=== PATIENT | female | born 1990 | race Caucasian/White ===

== ENCOUNTER 2016-12-03 01:50 | Emergency (ER) | payer BC ==
[2016-12-03] MEDS ORDERED: Ondansetron 4 MG Tab.DIS PO ONE (01:58)
[2016-12-03] MEDS ORDERED: Ketorolac 30 MG/ML SDV IVPUSH ONE (01:58)
[2016-12-03] MEDS ORDERED: Sodium Chloride 0.9% 1,000 ML IV SCH (02:00)
[2016-12-03] MEDS ORDERED: Ondansetron 4 MG/2 ML SDV IVPUSH ONE (02:03)
--- NOTE | 2016-12-03 02:20 | EDM.PDOC ---
ED HPI GENERAL MEDICAL PROBLEM - General Chief Complaint: Abdominal Pain Stated Complaint: ABDOMINAL PAIN Time Seen by Provider: 12/03/16 02:13 - History of Present Illness INITIAL COMMENTS - FREE TEXT/NARRATIVE: HISTORY AND PHYSICAL: History of present illness: Patient is a 26-year-old white female history of known cholelithiasis who presents with concern right upper quadrant abdominal pain nausea and vomiting after having been setswana fries. She denies fever chills states she's been relatively without attacks x10-12 months status post Review of systems: As per history of present illness and below otherwise all systems reviewed and negative. Past medical history: As per history of present illness and as reviewed below otherwise noncontributory. Surgical history: As per history of present illness and as reviewed below otherwise noncontributory. Social history: No reported history of drug or alcohol abuse. Family history: As per history of present illness and as reviewed below otherwise noncontributory. Physical exam: HEENT: Atraumatic, normocephalic, pupils reactive, negative for conjunctival pallor or scleral icterus, mucous membranes moist, throat clear, neck supple, nontender, trachea midline. Lungs: Clear to auscultation, breath sounds equal bilaterally, chest nontender. Heart: S1S2, regular, negative for clicks, rubs, or JVD. Abdomen: Soft, nondistended, mild tenderness in the right upper quadrant with deep palpation no rebound no guarding. Negative for masses or hepatosplenomegaly. Negative for costovertebral tenderness. Pelvis: Stable nontender. Genitourinary: Deferred. Rectal: Deferred. Extremities: Atraumatic, negative for cords or calf pain. Neurovascular unremarkable. Neuro: Awake, alert, oriented. Cranial nerves II through XII unremarkable. Cerebellum unremarkable. Motor and sensory unremarkable throughout. Exam nonfocal. Diagnostics: CBC CMP lipase right upper quadrant ultrasound Therapeutics: Normal saline 1 L bolus Toradol 30 mg IV Zofran 4 mg IV Impression: #1 cholelithiasis with biliary colic Definitive disposition and diagnosis as appropriate pending reevaluation and review of above. Treatments RENAL MEDICINE PHYSICIAN: Reports: Other medication(s) Other Treatments RENAL MEDICINE PHYSICIAN: tab. oxycodone @ 23:00hrs abdominal pain Pain Score (Numeric/FACES): 7 - Related Data Allergies Allergy/AdvReac Type Severity Reaction Status Date / Time Penicillins Allergy Hives Verified 12/03/16 01:54 Sulfa (Sulfonamide Allergy Hives Verified 12/03/16 01:54 Antibiotics) Home Meds: Home Meds buPROPion HCl [Wellbutrin Xl] 1 tab PO DAILY 09/26/16 [History] Oxycodone-Apap 12/03/16 [History] Past Medical History HEENT History: Reports: None Cardiovascular History: Reports: None Respiratory History: Reports: None Gastrointestinal History: Reports: Other (see below) Other Gastrointestinal History: gallstones Genitourinary History: Reports: None 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: Musculoskeletal History: Reports: None Neurological History: Reports: None Psychiatric History: Reports: Anxiety, Depression Endocrine/Metabolic History: Reports: None Hematologic History: Reports: None Oncologic (Cancer) History: Reports: None Dermatologic History: Reports: None - Infectious Disease History Infectious Disease History: Reports: None - Past Surgical History Head Surgeries/Procedures: Reports: None HEENT Surgical History: Reports: Oral surgery, Tonsillectomy Female Surgical History: Reports: section Musculoskeletal Surgical History: Reports: Other (see below) Other Musculoskeletal Surgeries/Procedures:: bilateral bunionectomy Social & Family History - Family History Family Medical History: Noncontributory - Tobacco Use Smoking Status *Q: Never Smoker Second Hand Smoke Exposure: No - Caffeine Use Caffeine Use: Reports: Soda - Recreational Drug Use Recreational Drug Use: No ED ROS GENERAL - Review of Systems Review Of Systems: ROS reveals no pertinent complaints other than HPI. ED EXAM, GENERAL - Physical Exam Exam: See Below (See dictation) Course - Vital Signs Last Recorded V/S: Last Vital Signs Temp 36.1 C 12/03/16 01:55 Pulse 80 12/03/16 01:55 Resp 16 12/03/16 01:55 BP 131/89 12/03/16 01:55 Pulse Ox 98 12/03/16 01:55 - Orders/Labs/Meds Orders: Active Orders 24 hr Category Date Time Status Gallbladder [Abdomen Ltd] [US] Stat Exams 12/03/16 01:58 Ordered CBC WITH AUTO DIFF [HEME] Stat Lab 12/03/16 01:58 Ordered COMPREHENSIVE METABOLIC PN,CMP [CHEM] Stat Lab 12/03/16 01:58 Ordered HCG QUALITATIVE,SERUM [CHEM] Stat Lab 12/03/16 01:58 Ordered Sodium Chloride 0.9% [Normal Saline] 1,000 ml Med 12/03/16 02:00 Active IV ASDIRECTED Medication Orders Sodium Chloride (Normal Saline) 1,000 mls @ 999 mls/hr IV ASDIRECTED JOSUE Last Admin: 12/03/16 02:15 Dose: 999 mls/hr Meds: Medications Generic Name Dose Route Start Last Admin Trade Name Freq PRN Reason Stop Dose Admin Sodium Chloride 1,000 mls @ 999 mls/hr 12/03/16 02:00 12/03/16 02:15 Normal Saline IV 999 mls/hr ASDIRECTED JOSUE Administration Discontinued Medications Generic Name Dose Route Start Last Admin Trade Name Freq PRN Reason Stop Dose Admin Ketorolac Tromethamine 30 mg 12/03/16 01:58 12/03/16 02:15 Toradol IVPUSH 12/03/16 01:59 30 mg ONETIME ONE Administration Ondansetron HCl 4 mg 12/03/16 01:58 12/03/16 02:03 Zofran Odt PO 12/03/16 01:59 Not Given ONETIME ONE Ondansetron HCl 4 mg 12/03/16 02:03 12/03/16 02:15 Zofran IVPUSH 12/03/16 02:04 4 mg ONETIME ONE Administration Departure - Departure Time of Disposition: 02:19 Disposition: Home, Self-Care 01 Condition: good Clinical Impression: Cholelithiasis, Biliary colic Forms: ED Department Discharge Additional Instructions: The following information is given to patients seen in the emergency department who are being discharged to home. This information is to outline your options for follow-up care. We provide all patients seen in our emergency department with a follow-up referral. The need for follow-up, as well as the timing and circumstances, are variable depending upon the specifics of your emergency department visit. If you don't have a primary care physician on staff, we will provide you with a referral. We always advise you to contact your personal physician following an emergency department visit to inform them of the circumstance of the visit and for follow-up with them and/or the need for any referrals to a consulting specialist. The emergency department will also refer you to a specialist when appropriate. This referral assures that you have the opportunity for followup care with a specialist. All of these measure are taken in an effort to provide you with optimal care, which includes your followup. Under all circumstances we always encourage you to contact your private physician who remains a resource for coordinating your care. When calling for followup care, please make the office aware that this follow-up is from your recent emergency room visit. If for any reason you are refused follow-up, please contact the [facility] emergency department at and asked to speak to the emergency department charge nurse. [facility] - General Surgery Professional Building [address] [place] [address], [address] [place] [address] Dietary changes as discussed Motrin or Tylenol as directed follow Gen. surgery above call schedule routine appointment return as needed as discussed - My Orders Last 24 Hours: My Active Orders 12/03/16 01:58 Gallbladder [Abdomen Ltd] [US] Stat CBC WITH AUTO DIFF [HEME] Stat COMPREHENSIVE METABOLIC PN,CMP [CHEM] Stat HCG QUALITATIVE,SERUM [CHEM] Stat 12/03/16 02:00 Sodium Chloride 0.9% [Normal Saline] 1,000 ml IV ASDIRECTED - Assessment/Plan Last 24 Hours: My Active Orders 12/03/16 01:58 Gallbladder [Abdomen Ltd] [US] Stat CBC WITH AUTO DIFF [HEME] Stat COMPREHENSIVE METABOLIC PN,CMP [CHEM] Stat HCG QUALITATIVE,SERUM [CHEM] Stat 12/03/16 02:00 Sodium Chloride 0.9% [Normal Saline] 1,000 ml IV ASDIRECTED
[2016-12-03 03:06] LABS: CHLORIDE,CL 109 mmol/L (98-110); SODIUM,NA 141 mmol/L (136-146)
[2016-12-03 05:09] VITALS: BP 127/81
--- NOTE | 2016-12-04 10:41 | US ---
EXAM DATE: 12/03/16 PATIENT'S AGE: 26 Patient: BEBE BOYER Facility: [place], [place] Site . Site : 1990 Study: US Abdomen [id number]/23/2017 3:46:03 AM Ordering Physician: Doctor Rodriguez Final Report: INDICATION: Right upper quadrant pain TECHNIQUE: Ultrasound abdomen limited. Sonographic images of the right upper quadrant were obtained using davis-scale and color Doppler images. COMPARISON: 04/28/2016 FINDINGS: Liver: Mildly prominent, measuring 18.4 centimeters. Unremarkable hepatic echotexture.. No masses. No intrahepatic biliary dilatation. Gallbladder: Cholelithiasis again seen. No significant gallbladder wall thickening. No pericholecystic fluid. Common bile duct: 4 mm. Pancreas: Not well evaluated due to obscuring bowel gas. Right kidney: 10.4 x 4.2 x 6.0 cm. Normal echotexture and cortex. No masses, stones, or hydronephrosis. IMPRESSION: Cholelithiasis. Limited evaluation of the pancreas. Dictated by Josh Nation MD @ 12/03/2016 4:35:40 AM Dictated by: Josh Nation MD @ 12/03/2016 04:35:49 (Electronic Signature) Report Signed by Proxy and Original Signed Document filed in the Medical Record. MTDD
== END 2016-12-03 05:08 | disposition home or self-care (01) ==
LOC: MW.ED 01:50
DX: K80.70 Calculus of gallbladder and bile duct without cholecystitis without obstruction (principal); Z79.891 Long term (current) use of opiate analgesic; Z79.899 Other long term (current) drug therapy; F41.9 Anxiety disorder, unspecified; F32.9 Major depressive disorder, single episode, unspecified
CPT/HCPCS: 36415; 76705; 80053; 82150; 83690; 84703; 85025; 96361; 96374; 96375; 99284; J1885; J2405; J7040

== ENCOUNTER 2017-10-16 15:11 | Emergency (ER) | payer OTHER ==
--- NOTE | 2017-10-16 15:55 | EDM.PDOC ---
ED HPI GENERAL MEDICAL PROBLEM - General Chief Complaint: Upper Extremity Injury/Pain Stated Complaint: ANXIETY,TIGHTNESS IN LEFT SHOULDER Time Seen by Provider: 10/16/17 15:27 Source of Information: Reports: Patient History Limitations: Reports: No Limitations - History of Present Illness INITIAL COMMENTS - FREE TEXT/NARRATIVE: History of present illness: []Patient presents with two-week history of pain in her upper abdomen that change today and became pain her upper chest and shoulder. Patient is worried she was having a heart issue because of all the stress she is having from moving. Denies doing any heavy lifting or having any injuries while packing and moving. She denies any shortness of breath, fevers, chills or cough. Review of systems: As per history of present illness and below otherwise all systems reviewed and negative. Past medical history: As per history of present illness and as reviewed below otherwise noncontributory. Surgical history: As per history of present illness and as reviewed below otherwise noncontributory. Social history: No reported history of drug or alcohol abuse. Family history: As per history of present illness and as reviewed below otherwise noncontributory. Physical exam: General: Well developed, well nourished in NAD HEENT: Atraumatic, normocephalic, pupils reactive, negative for conjunctival pallor or scleral icterus, mucous membranes moist, throat clear, neck supple, nontender, trachea midline. Lungs: Clear to auscultation, breath sounds equal bilaterally, chest nontender. Area of her tenderness is under her distal left clavicle that is not reproducible with palpation or with arm movement. Heart: S1S2, regular, negative for clicks, rubs, or JVD. Abdomen: Soft, nondistended, nontender. Negative for masses or hepatosplenomegaly. Negative for costovertebral tenderness. Pelvis: Stable nontender. Genitourinary: Deferred. Rectal: Deferred. Extremities: Atraumatic, negative for cords or calf pain. Neurovascular unremarkable. Neuro: Awake, alert, oriented. Cranial nerves II through XII unremarkable. Cerebellum unremarkable. Motor and sensory unremarkable throughout. Exam nonfocal. Diagnostics: []EKG normal sinus rhythm without ischemic changes, CBC chemistry and chest x- ray are also all normal Therapeutics: [] Impression: []Stress gastritis Plan: []Take Pepcid 2 times a day for 2 weeks follow-up with primary care Definitive disposition and diagnosis as appropriate pending reevaluation and review of above. Left Shoulder Pain Score (Numeric/FACES): 3 - Related Data Allergies Allergy/AdvReac Type Severity Reaction Status Date / Time Penicillins Allergy Hives Verified 10/16/17 15:28 Sulfa (Sulfonamide Allergy Hives Verified 10/16/17 15:28 Antibiotics) Home Meds: Home Meds . 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: Musculoskeletal History: Reports: None Neurological History: Reports: None Psychiatric History: Reports: Anxiety, Depression Endocrine/Metabolic History: Reports: None Hematologic History: Reports: None Oncologic (Cancer) History: Reports: None Dermatologic History: Reports: None - Infectious Disease History Infectious Disease History: Reports: Chicken Pox - Past Surgical History Head Surgeries/Procedures: Reports: None HEENT Surgical History: Reports: Oral Surgery, Tonsillectomy Female Surgical History: Reports: Section Social & Family History - Family History Family Medical History: Noncontributory - Tobacco Use Smoking Status *Q: Never Smoker Second Hand Smoke Exposure: No - Caffeine Use Caffeine Use: Reports: Soda - Recreational Drug Use Recreational Drug Use: No Review of Systems - Review of Systems Review Of Systems: See Below (See history of present illness) ED EXAM, GENERAL - Physical Exam Exam: See Below (See history of present illness) Course - Vital Signs Last Recorded V/S: Last Vital Signs Temp 97.7 F 10/16/17 15:26 Pulse 80 10/16/17 17:19 Resp 18 10/16/17 17:19 BP 131/88 10/16/17 17:19 Pulse Ox 97 10/16/17 17:19 - Orders/Labs/Meds Orders: Active Orders 24 hr Category Date Time Status EKG Documentation Completion [RC] STAT Care 10/16/17 15:47 Active Chest 2V [CR] Stat Exams 10/16/17 16:39 Taken Labs: Laboratory Tests 10/16/17 10/16/17 Range/Units 15:59 15:59 WBC 7.12 (4.0-11.0) K/uL RBC 4.44 (4.30-5.90) M/uL Hgb 12.7 (12.0-16.0) g/dL Hct 37.0 (36.0-46.0) % MCV 83.3 (80.0-98.0) fL MCH 28.6 (27.0-32.0) pg MCHC 34.3 (31.0-37.0) g/dL RDW Std Deviation 39.6 (28.0-62.0) fl RDW Coeff of Vivian 13 (11.0-15.0) % Plt Count 267 (150-400) K/uL MPV 9.80 (7.40-12.00) fL Neut % (Auto) 66.0 (48.0-80.0) % Lymph % (Auto) 22.6 (16.0-40.0) % [place] % (Auto) 8.8 (0.0-15.0) % Eos % (Auto) 2.0 (0.0-7.0) % Baso % (Auto) 0.6 (0.0-1.5) % Neut # (Auto) 4.7 (1.4-5.7) K/uL Lymph # (Auto) 1.6 (0.6-2.4) K/uL [place] # (Auto) 0.6 (0.0-0.8) K/uL Eos # (Auto) 0.1 (0.0-0.7) K/uL Baso # (Auto) 0.0 (0.0-0.1) K/uL Nucleated RBC % 0.0 /100WBC Nucleated RBCs # 0 K/uL Sodium 139 (136-145) mmol/L Potassium 4.4 (3.5-5.1) mmol/L Chloride 106 (98-107) mmol/L Carbon Dioxide 21.9 (21.0-32.0) mmol/L BUN 13 (7.0-18.0) mg/dL Creatinine 0.7 (0.6-1.0) mg/dL Est Cr Clr Drug Dosing 98.09 mL/min Estimated GFR (MDRD) > 60.0 ml/min Glucose 89 (74-106) mg/dL Calcium 9.4 (8.5-10.1) mg/dL Total Bilirubin 0.8 (0.2-1.0) mg/dL AST 21 (15-37) U/L ALT 35 (14-63) U/L Alkaline Phosphatase 102 (46-116) U/L Total Protein 6.8 (6.4-8.2) g/dL Albumin 3.7 (3.4-5.0) g/dL Globulin 3.1 (2.0-3.5) g/dL Albumin/Globulin Ratio 1.2 L (1.3-2.8) Lipase 92 (73-393) U/L Departure - Departure Time of Disposition: 17:29 Disposition: Home, Self-Care 01 Condition: Good Clinical Impression: Gastritis Qualifiers: Gastritis type: unspecified gastritis Chronicity: acute Gastritis bleeding: without bleeding Qualified Code(s): K29.00 - Acute gastritis without bleeding - Discharge Information Referrals: Xiomy Meza PA [Primary Care Provider] - Forms: ED Department Discharge Additional Instructions: The following information is given to patients seen in the emergency department who are being discharged to home. This information is to outline your options for follow-up care. We provide all patients seen in our emergency department with a follow-up referral. The need for follow-up, as well as the timing and circumstances, are variable depending upon the specifics of your emergency department visit. If you don't have a primary care physician on staff, we will provide you with a referral. We always advise you to contact your personal physician following an emergency department visit to inform them of the circumstance of the visit and for follow-up with them and/or the need for any referrals to a consulting specialist. The emergency department will also refer you to a specialist when appropriate. This referral assures that you have the opportunity for follow-up care with a specialist. All of these measure are taken in an effort to provide you with optimal care, which includes your follow-up. Under all circumstances we always encourage you to contact your private physician who remains a resource for coordinating your care. When calling for follow-up care, please make the office aware that this follow-up is from your recent emergency room visit. If for any reason you are refused follow-up, please contact the [facility] Emergency Department at and asked to speak to the emergency department charge nurse. Take Pepcid twice a day for 2 weeks follow up with primary care return if symptoms worsen or change [facility] [address] [place] [id number] - My Orders Last 24 Hours: My Active Orders 10/16/17 15:47 EKG Documentation Completion [RC] STAT 10/16/17 16:39 Chest 2V [CR] Stat - Assessment/Plan Last 24 Hours: My Active Orders 10/16/17 15:47 EKG Documentation Completion [RC] STAT 10/16/17 16:39 Chest 2V [CR] Stat
[2017-10-16 16:43] LABS: CHLORIDE,CL 106 mmol/L (98-107); SODIUM,NA 139 mmol/L (136-145)
[2017-10-16 17:19] VITALS: BP 131/88
--- NOTE | 2017-10-17 07:37 | CR ---
EXAM DATE: 10/16/17 PATIENT'S AGE: 27 Patient: BEBE BOYER Facility: [place], [place] Site . Site : 1990 Study: XRay Chest [id number]/6/2018 5:22:18 PM Ordering Physician: Gunnar Gonzalez Final Report: INDICATION: Left-sided chest pain, anxiety TECHNIQUE: Chest 2 views. COMPARISON: None FINDINGS: Cardiovascular and mediastinum: Heart size and vasculature are normal in caliber and appearance. Mediastinum is within normal limits. Lungs and pleural spaces: Lungs are clear. No sign of infiltrate or mass. No sign of pleural effusion. No pneumothorax. Bones and soft tissues: No significant findings. IMPRESSION: No sign of acute disease. Dictated by Lynne Garcia MD @ Oct 16 2017 5:53PM (Electronic Signature) Report Signed by Proxy. [facility] C[facility]ERT[facility]
== END 2017-10-16 17:39 | disposition home or self-care (01) ==
LOC: MW.ED 15:11
DX: K29.00 Acute gastritis without bleeding (principal); Z88.0 Allergy status to penicillin; Z88.2 Allergy status to sulfonamides
CPT/HCPCS: 36415; 71046; 71046-26; 80053; 83690; 85025; 99283; 99284-25

== ENCOUNTER 2018-08-21 09:39 | Day surgery (SDC) | payer OTHER ==
[~2018-08-21 09:39] MED LIST: Lactated Ringers 1,000 ML IV SCH; Midazolam 1 MG/ML 2 ML SDV ONE; Propofol 200 MG/20 ML SDV ONE; fentaNYL 100 MCG/2 ML SDV ONE
--- NOTE | 2018-08-21 10:18 | PCM.PREANE ---
Preanesthetic Assessment - Anesthesia/Transfusion/Family Hx Anesthesia History: Prior Anesthesia Without Reaction Family History of Anesthesia Reaction: No Transfusion History: No Prior Transfusion(s) - Review of Systems General: No Symptoms Pulmonary: No Symptoms Cardiovascular: No Symptoms Neurological: No Symptoms Other: Reports: None - Physical Assessment NPO Status Date: 08/20/18 Height: 1.6 m Weight: 78.471 kg ASA Class: 2 Mental Status: Alert & Oriented x3 Airway Class: Mallampati = 1 Dentition: Reports: Normal Dentition ROM/Head Extension: Full Lungs: Clear to Auscultation, Normal Respiratory Effort Cardiovascular: Regular Rate, Regular Rhythm - Allergies Allergies/Adverse Reactions: Allergies Allergy/AdvReac Type Severity Reaction Status Date / Time Penicillins Allergy Hives Verified 08/15/18 11:53 Sulfa (Sulfonamide Allergy Hives Verified 08/15/18 11:53 Antibiotics) - Blood Blood Available: No - Anesthesia Plan Pre-Op Medication Ordered: None - Acknowledgements Anesthesia Type Planned: MAC Pt an Appropriate Candidate for the Planned Anesthesia: Yes Alternatives and Risks of Anesthesia Discussed w Pt/Guardian: Yes Pt/Guardian Understands and Agrees with Anesthesia Plan: Yes Additional Comments: PMH: anxiety, exec induced asthma PLAN: MAC/TIVA PreAnesthesia Questionnaire HEENT History: Reports: None Cardiovascular History: Reports: None Respiratory History: Reports: Asthma Other Respiratory History: exercise induced asthma Gastrointestinal History: Reports: None Other Gastrointestinal History: gallstones Genitourinary History: Reports: None 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: Musculoskeletal History: Reports: None Neurological History: Reports: Other (See Below) Other Neuro History: hx of motion sickness Psychiatric History: Reports: Anxiety, Depression Endocrine/Metabolic History: Reports: Other (See Below) Other Endocrine/Metabolic History: just diagnosed with Hashimotos thyroiditis- no medications Hematologic History: Reports: None Immunologic History: Reports: None Oncologic (Cancer) History: Reports: None Dermatologic History: Reports: None - Infectious Disease History Infectious Disease History: Reports: Chicken Pox - Past Surgical History Head Surgeries/Procedures: Reports: None HEENT Surgical History: Reports: Tonsillectomy Female Surgical History: Reports: Section Musculoskeletal Surgical History: Reports: Other (See Below) Other Musculoskeletal Surgeries/Procedures:: bilateral bunionectomy (has screw in each foot) - SUBSTANCE USE Smoking Status *Q: Never Smoker Recreational Drug Use History: No - HOME MEDS Home Medications: Home Meds Albuterol [Proventil HFA] 2 puff INH Q4H PRN 08/15/18 [History] buPROPion HCl [Wellbutrin SR] 150 mg PO DAILY 08/15/18 [History] traZODone HCl [Trazodone HCl] 50 mg PO BEDTIME PRN 08/15/18 [History] - CURRENT (IN HOUSE) MEDS Current Meds: Current Medications Lactated Ringer's (Ringers, Lactated) 1,000 mls @ 125 mls/hr IV ASDIRECTED JOSUE Discontinued Medications Fentanyl (Sublimaze) Confirm Administered Dose 100 mcg .ROUTE .STK-MED ONE Stop: 08/21/18 08:18 Lidocaine HCl (Xylocaine-Mpf 1%) Confirm Administered Dose 5 mls @ as directed .ROUTE .STK-MED ONE Stop: 08/21/18 10:04 Midazolam HCl (Versed 1 Mg/Ml) Confirm Administered Dose 2 mg .ROUTE .STK-MED ONE Stop: 08/21/18 08:19 Propofol (Diprivan 20 Ml) Confirm Administered Dose 200 mg .ROUTE .STK-MED ONE Stop: 08/21/18 08:18
[2018-08-21] MEDS ORDERED: Propofol 200 MG/20 ML SDV ONE (10:25)
--- NOTE | 2018-08-21 11:40 | PCM.OPNOTE ---
- General Post-Op/Procedure Note Date of Surgery/Procedure: 08/21/18 Operative Procedure(s): Colonoscopy Pre Op Diagnosis: Rectal bleeding Post-Op Diagnosis: Internal hemorrhoids. No evidence of neoplasia. Anesthesia Technique: MAC (ASA II) Primary Surgeon: Rai Henderson Condition: Good Free Text/Narrative:: DICTATION [id number] CPT CODE [id number]
[2018-08-21] MEDS ORDERED: Lactated Ringers 1,000 ML IV SCH (11:45)
--- NOTE | 2018-08-21 11:45 | PCM.POSTAN ---
POST ANESTHESIA ASSESSMENT - MENTAL STATUS Mental Status: Alert, Oriented - RESPIRATORY Respiratory Status: Respiratory Rate WNL, Airway Patent, O2 Saturation Stable - CARDIOVASCULAR CV Status: Pulse Rate WNL, Blood Pressure Stable - GASTROINTESTINAL GI Status: No Symptoms - POST OP HYDRATION Hydration Status: Adequate & Stable
--- NOTE | 2018-08-21 11:51 | PCM48HPAN ---
Post Anesthesia Note - EVALUATION WITHIN 48HRS OF ANESTHETIC Vital Signs in Normal Range: Yes Patient Participated in Evaluation: Yes Respiratory Function Stable: Yes Airway Patent: Yes Cardiovascular Function Stable: Yes Hydration Status Stable: Yes Pain Control Satisfactory: Yes Nausea and Vomiting Control Satisfactory: Yes Mental Status Recovered: Yes Resp Rate: 14
--- NOTE | 2018-08-21 12:15 | OR ---
SURGEON: Rai Henderson M.D. DATE OF PROCEDURE: 08/21/2018 OPERATION PERFORMED: Colonoscopy. ANESTHESIA: MAC. ASA CLASSIFICATION: II. PREOPERATIVE DIAGNOSIS: Rectal bleeding. POSTOPERATIVE DIAGNOSIS: Internal hemorrhoids. DESCRIPTION OF PROCEDURE: The patient was taken to the endoscopy room and positioned on the endoscopy table in the left lateral decubitus position. Time-out was called for appropriate identification of patient and procedure. Monitored anesthesia care was provided. The colonoscope was inserted into the rectum and advanced with moderate difficulty to the cecum where the colonoscope was retroflexed to visualize the ascending colon from below. The colonoscope was then straightened and slowly withdrawn. The cecum, ascending colon, hepatic flexure, transverse colon, splenic flexure, descending colon, sigmoid colon, and rectum were very well visualized. There were no tumors, polyps, diverticula, or angiodysplastic changes. There was no evidence of inflammatory bowel disease. Once the colonoscope was withdrawn to the rectum, it was retroflexed to visualize the anal orifice from above. No tumors or polyps were seen. The patient does have some chronic hemorrhoidal changes. There was no acute bleeding noted. The colonoscope was then straightened, the rectum aspirated, and the colonoscope removed. The patient tolerated the procedure well and was taken to recovery room in stable condition. RAE / JENNIFER /[id number]
[2018-08-21 16:16] VITALS: BP 109/80
== END 2018-08-21 12:30 | disposition home or self-care (01) ==
LOC: MW.SDS 09:39
PROVIDERS: ATTEND Surgery
DX: K62.5 Hemorrhage of anus and rectum (principal); K64.8 Other hemorrhoids; J45.990 Exercise induced bronchospasm; E06.3 Autoimmune thyroiditis; F41.8 Other specified anxiety disorders; G47.00 Insomnia, unspecified; Z88.0 Allergy status to penicillin; Z88.2 Allergy status to sulfonamides
CPT/HCPCS: 36415; 45378; 84703; J2250; J2704; J3010; J7120

== ENCOUNTER 2020-05-21 05:24 | Inpatient (IN) | payer MEDICAID ==
[2020-05-21] MEDS ORDERED: Sodium Chloride 0.9% 10 ML SDV IV PRN (05:34)
[2020-05-21] MEDS ORDERED: ceFAZolin 2 GM in Premix Bag 1 BAG IV ONE (05:34)
[2020-05-21] MEDS ORDERED: Citric Acid/Sodium Citrate Solution 30 ML Cup PO ONE (05:34)
[2020-05-21] MEDS ORDERED: Sodium Chloride 0.9% 10 ML Syringe FLUSH PRN (05:34)
[2020-05-21] MEDS ORDERED: Sodium Chloride 0.9% 2.5 ML Syringe FLUSH PRN (05:34)
[2020-05-21] MEDS ORDERED: Oxytocin/0.9 % Sodium Chloride 30 UNIT/500 ML BAG IV SCH (05:45)
[2020-05-21] MEDS: Lactated Ringers 1,000 ML IV SCH ×3 (06:01→18:18)
--- NOTE | 2020-05-21 06:58 | PCM.PREANE ---
Preanesthetic Assessment - Anesthesia/Transfusion/Family Hx Anesthesia History: Prior Anesthesia Without Reaction Other Type of Anesthesia Reaction Comment: Hx of N/V with previous spinal, states "from my heart rate dropping" Family History of Anesthesia Reaction: No Transfusion History: No Prior Transfusion(s) Intubation History: Unknown - Review of Systems General: No Symptoms Pulmonary: No Symptoms Cardiovascular: No Symptoms Gastrointestinal: No Symptoms Neurological: No Symptoms Other: Reports: None - Physical Assessment Height: 5 ft 3 in Weight: 208 kg ASA Class: 2 Mental Status: Alert & Oriented x3 Airway Class: Mallampati = 2 Dentition: Reports: Normal Dentition Thyro-Mental Finger Breadths: 3 Mouth Opening Finger Breadths: 3 ROM/Head Extension: Full Lungs: Clear to Auscultation, Normal Respiratory Effort Cardiovascular: Regular Rate, Regular Rhythm - Lab Values: Laboratory Last Values WBC 7.49 K/uL (4.0-11.0) 05/21/20 05:45 RBC 4.30 M/uL (4.30-5.90) 05/21/20 05:45 Hgb 11.6 g/dL (12.0-16.0) L 05/21/20 05:45 Hct 35.6 % (36.0-46.0) L 05/21/20 05:45 MCV 82.8 fL (80.0-98.0) 05/21/20 05:45 MCH 27.0 pg (27.0-32.0) 05/21/20 05:45 MCHC 32.6 g/dL (31.0-37.0) 05/21/20 05:45 RDW Std Deviation 53.4 fl (28.0-62.0) 05/21/20 05:45 RDW Coeff of Vivian 18 % (11.0-15.0) H 05/21/20 05:45 Plt Count 245 K/uL (150-400) 05/21/20 05:45 MPV 10.20 fL (7.40-12.00) 05/21/20 05:45 Nucleated RBC % 0.0 /100WBC 05/21/20 05:45 Nucleated RBCs # 0 K/uL 05/21/20 05:45 Blood Type O POSITIVE 05/21/20 05:45 Antibody Screen NEGATIVE 05/21/20 05:45 - Allergies Allergies/Adverse Reactions: Allergies Allergy/AdvReac Type Severity Reaction Status Date / Time Penicillins Allergy Hives Verified 05/14/20 09:29 Sulfa (Sulfonamide Allergy Hives Verified 05/14/20 09:29 Antibiotics) - Blood Blood Available: No - Anesthesia Plan Pre-Op Medication Ordered: None - Acknowledgements Anesthesia Type Planned: Spinal (general anesthesia back-up plan) Pt an Appropriate Candidate for the Planned Anesthesia: Yes Alternatives and Risks of Anesthesia Discussed w Pt/Guardian: Yes Pt/Guardian Understands and Agrees with Anesthesia Plan: Yes PreAnesthesia Questionnaire HEENT History: Reports: None Other HEENT History: Wisdome Teeth Removal; Glasses Cardiovascular History: Reports: None Other Cardiovascular History: elevated BP with first due to pre eclampsia Respiratory History: Reports: Asthma Other Respiratory History: Exercise induced asthma, states she hasn't used inhaler in months Gastrointestinal History: Reports: None Other Gastrointestinal History: gallstones Genitourinary History: Reports: None 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: Musculoskeletal History: Reports: None Neurological History: Reports: Other (See Below) Other Neuro History: hx of motion sickness Psychiatric History: Reports: Anxiety, Depression Endocrine/Metabolic History: Reports: Other (See Below) Other Endocrine/Metabolic History: just diagnosed with Hashimotos thyroiditis- no medications Hematologic History: Reports: Anemia Immunologic History: Reports: None Oncologic (Cancer) History: Reports: None Dermatologic History: Reports: None - Infectious Disease History Infectious Disease History: Reports: None - Past Surgical History HEENT Surgical History: Reports: Tonsillectomy Respiratory Surgical History: Reports: None Female Surgical History: Reports: Section (x2) Neurological Surgical History: Reports: None Other Musculoskeletal Surgeries/Procedures:: bilateral bunionectomy (has screw in each foot) Oncologic Surgical History: Reports: None Dermatological Surgical History: Reports: None - SUBSTANCE USE Smoking Status *Q: Never Smoker Recreational Drug Use History: No - HOME MEDS Home Medications: Home Meds Albuterol Sulfate [Proair Hfa] 1 - 2 puff INH ASDIRECTED PRN 05/14/20 [History] Melatonin 3 mg PO BEDTIME PRN 05/14/20 [History] Pnv No.95/Ferrous Fum/Folic AC [ Vitamin Tablet] 1 tab PO DAILY 05/14/20 [History] - CURRENT (IN HOUSE) MEDS Current Meds: Current Medications Oxytocin/Sodium Chloride (Oxytocin 30 Unit/500 Ml-Ns) 30 unit in 500 mls @ 250 mls/hr IV TITRATE JOSUE Lactated Ringer's (Ringers, Lactated) 1,000 mls @ 500 mls/hr IV BOLUS [facility] Last Admin: 05/21/20 06:54 Dose: 500 mls/hr Documented by: Sodium Chloride (Saline Flush) 10 ml FLUSH ASDIRECTED PRN PRN Reason: Keep Vein Open Sodium Chloride (Saline Flush) 2.5 ml FLUSH ASDIRECTED PRN PRN Reason: Keep Vein Open Sodium Chloride (Normal Saline) 10 ml IV ASDIRECTED PRN PRN Reason: IV Use Discontinued Medications Citric Acid/Sodium Citrate (Bicitra Solution) 30 ml PO ONETIME ONE Stop: 05/21/20 05:35 Cefazolin Sodium/Dextrose 2 gm (/ Premix) 50 mls @ 100 mls/hr IV ONETIME ONE Stop: 05/21/20 06:03
--- NOTE | 2020-05-21 07:10 | PCM.PREANE ---
Preanesthetic Assessment - Anesthesia/Transfusion/Family Hx Anesthesia History: Prior Anesthesia Without Reaction Other Type of Anesthesia Reaction Comment: Hx of N/V with previous spinal, states "from my heart rate dropping" Transfusion History: No Prior Transfusion(s) - Physical Assessment Height: 5 ft 3 in Weight: 208 kg - Lab Values: Laboratory Last Values WBC 7.49 K/uL (4.0-11.0) 05/21/20 05:45 RBC 4.30 M/uL (4.30-5.90) 05/21/20 05:45 Hgb 11.6 g/dL (12.0-16.0) L 05/21/20 05:45 Hct 35.6 % (36.0-46.0) L 05/21/20 05:45 MCV 82.8 fL (80.0-98.0) 05/21/20 05:45 MCH 27.0 pg (27.0-32.0) 05/21/20 05:45 MCHC 32.6 g/dL (31.0-37.0) 05/21/20 05:45 RDW Std Deviation 53.4 fl (28.0-62.0) 05/21/20 05:45 RDW Coeff of Vivian 18 % (11.0-15.0) H 05/21/20 05:45 Plt Count 245 K/uL (150-400) 05/21/20 05:45 MPV 10.20 fL (7.40-12.00) 05/21/20 05:45 Nucleated RBC % 0.0 /100WBC 05/21/20 05:45 Nucleated RBCs # 0 K/uL 05/21/20 05:45 Blood Type O POSITIVE 05/21/20 05:45 Antibody Screen NEGATIVE 05/21/20 05:45 - Allergies Allergies/Adverse Reactions: Allergies Allergy/AdvReac Type Severity Reaction Status Date / Time Penicillins Allergy Hives Verified 05/14/20 09:29 Sulfa (Sulfonamide Allergy Hives Verified 05/14/20 09:29 Antibiotics) PreAnesthesia Questionnaire HEENT History: Reports: None Other HEENT History: Wisdome Teeth Removal; Glasses Cardiovascular History: Reports: None Other Cardiovascular History: elevated BP with first due to pre eclampsia Respiratory History: Reports: Asthma Other Respiratory History: Exercise induced asthma, states she hasn't used inhaler in months Gastrointestinal History: Reports: None Other Gastrointestinal History: gallstones Genitourinary History: Reports: None 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: Musculoskeletal History: Reports: None Neurological History: Reports: Other (See Below) Other Neuro History: hx of motion sickness Psychiatric History: Reports: Anxiety, Depression Endocrine/Metabolic History: Reports: Other (See Below) Other Endocrine/Metabolic History: just diagnosed with Hashimotos thyroiditis- no medications Hematologic History: Reports: Anemia Immunologic History: Reports: None Oncologic (Cancer) History: Reports: None Dermatologic History: Reports: None - Infectious Disease History Infectious Disease History: Reports: None - Past Surgical History HEENT Surgical History: Reports: Tonsillectomy Respiratory Surgical History: Reports: None Female Surgical History: Reports: Section Neurological Surgical History: Reports: None Other Musculoskeletal Surgeries/Procedures:: bilateral bunionectomy (has screw in each foot) Oncologic Surgical History: Reports: None Dermatological Surgical History: Reports: None - SUBSTANCE USE Smoking Status *Q: Never Smoker Recreational Drug Use History: No - HOME MEDS Home Medications: Home Meds Albuterol Sulfate [Proair Hfa] 1 - 2 puff INH ASDIRECTED PRN 05/14/20 [History] Melatonin 3 mg PO BEDTIME PRN 05/14/20 [History] Pnv No.95/Ferrous Fum/Folic AC [ Vitamin Tablet] 1 tab PO DAILY 05/14/20 [History] - CURRENT (IN HOUSE) MEDS Current Meds: Current Medications Oxytocin/Sodium Chloride (Oxytocin 30 Unit/500 Ml-Ns) 30 unit in 500 mls @ 250 mls/hr IV TITRATE JOSUE Lactated Ringer's (Ringers, Lactated) 1,000 mls @ 500 mls/hr IV BOLUS [facility] Last Admin: 05/21/20 06:54 Dose: 500 mls/hr Documented by: Sodium Chloride (Saline Flush) 10 ml FLUSH ASDIRECTED PRN PRN Reason: Keep Vein Open Sodium Chloride (Saline Flush) 2.5 ml FLUSH ASDIRECTED PRN PRN Reason: Keep Vein Open Sodium Chloride (Normal Saline) 10 ml IV ASDIRECTED PRN PRN Reason: IV Use Discontinued Medications Citric Acid/Sodium Citrate (Bicitra Solution) 30 ml PO ONETIME ONE Stop: 05/21/20 05:35 Cefazolin Sodium/Dextrose 2 gm (/ Premix) 50 mls @ 100 mls/hr IV ONETIME ONE Stop: 05/21/20 06:03
[2020-05-21] MEDS ORDERED: Octyl 2-Cyanoacrylate 1 Tube ONE (07:43)
[2020-05-21] MEDS ORDERED: Morphine PF 10 MG/10 ML SDV ONE (07:52)
[2020-05-21] MEDS ORDERED: Phenylephrine 1% 10 MG/ML SDV ONE (07:57)
[2020-05-21] MEDS ORDERED: Ondansetron 4 MG/2 ML SDV ONE (07:57)
[2020-05-21] MEDS ORDERED: ceFAZolin/Dextrose,Iso-Osmotic 2 GM/50 ML Duplex Bag IV ONE (08:16)
[2020-05-21] MEDS ORDERED: Ketorolac 30 MG/ML SDV ONE (09:02)
[2020-05-21] MEDS ORDERED: Oxytocin 10 Units/1 ML SDV IM PRN (09:58)
[2020-05-21] MEDS ORDERED: Methylergonovine 0.2 MG/1 ML Amp IM PRN (09:58)
[2020-05-21] MEDS ORDERED: Lanolin 100% Cream 7 GM Tube TOP PRN (09:58)
[2020-05-21] MEDS ORDERED: Measles, Mumps & Rubella Vaccine 0.5 ML SDV SUBCUT ONE (09:58)
[2020-05-21] MEDS ORDERED: diphenhydrAMINE 50 MG/ML SDV IVPUSH PRN ×2 (09:58→10:06)
[2020-05-21] MEDS ORDERED: Bisacodyl 10 MG Supp RECTAL PRN (09:58)
[2020-05-21] MEDS ORDERED: Misoprostol 200 MCG Tab RECTAL PRN (09:58)
[2020-05-21] MEDS ORDERED: Ondansetron 4 MG/2 ML SDV IVPUSH PRN ×2 (09:58→10:06)
[2020-05-21] MEDS ORDERED: Acetaminophen/oxyCODONE 325-5 MG Tab PO PRN ×3 (09:58→10:06)
[2020-05-21] MEDS ORDERED: Tranexamic Acid 1,000 MG in Sodium Chloride 0.9% 100 ML IV PRN (09:58)
[2020-05-21] MEDS ORDERED: Oxytocin/Lactated Ringers 30 UNIT/500 ML BAG IV SCH (10:00)
[2020-05-21] MEDS ORDERED: Lactated Ringers 1,000 ML IV SCH (10:00)
--- NOTE | 2020-05-21 10:04 | PCM.OPNOTE ---
- General Post-Op/Procedure Note Date of Surgery/Procedure: 05/21/20 Operative Procedure(s): Tertiary Lower segment Transverse Findings: Live female delivered at 39w1d , 8/9 weight 3650g Pre Op Diagnosis: 29yo @ 39w1d. Hx of previous X2 Post-Op Diagnosis: same Anesthesia Technique: Spinal Primary Surgeon: Sarah Corado Anesthesia Provider: Brittaney Cole Fluid Replacement, Intraop: 900 Output, Urine Amount: 150 EBL in mLs: 700 Complications: none Condition: Good Free Text/Narrative:: Intake & Output 05/20/20 05/21/20 05/21/20 22:59 06:59 14:59 Intake Total 1000 Balance 1000
[2020-05-21] MEDS ORDERED: fentaNYL 100 MCG/2 ML SDV IVPUSH PRN (10:06)
[2020-05-21] MEDS ORDERED: Nalbuphine 10 MG/1 ML Vial IVPUSH PRN (10:06)
[2020-05-21] MEDS ORDERED: Naloxone 0.4 MG/ML Syringe IVPUSH PRN (10:06)
[2020-05-21] MEDS ORDERED: Morphine 10 MG/ML Syringe ONE (10:10)
--- NOTE | 2020-05-21 10:46 | PCM.POSTAN ---
POST ANESTHESIA ASSESSMENT - MENTAL STATUS Mental Status: Alert, Oriented - RESPIRATORY Respiratory Status: Respiratory Rate WNL, Airway Patent, O2 Saturation Stable - CARDIOVASCULAR CV Status: Pulse Rate WNL, Blood Pressure Stable - GASTROINTESTINAL GI Status: No Symptoms - PAIN Pain Score: 0 - POST OP HYDRATION Hydration Status: Adequate & Stable - OBSERVATIONS Free Text/Narrative:: No anesthesia complications or concerns noted.
[2020-05-21] MEDS ORDERED: Oxytocin 10 Units/1 ML SDV ONE (11:58)
[2020-05-21] MEDS: Ketorolac 30 MG/ML SDV IVPUSH SCH ×2 (15:10→21:00)
[2020-05-21] MEDS: Docusate Sodium 100 MG Cap PO SCH (21:09)
[2020-05-22] MEDS: Ketorolac 30 MG/ML SDV IVPUSH SCH ×3 (03:29→09:03)
--- NOTE | 2020-05-22 08:53 | PCM.PNPP ---
- General Info Date of Service: 05/22/20 Admission Dx/Problem (Free Text): Elective tertiary repeat low transverse section at 39/1 weeks gestation. Functional Status: Reports: Pain Controlled - Review of Systems General: Reports: No Symptoms Skin: Reports: No Symptoms Neurological: Reports: No Symptoms Psychiatric: Reports: No Symptoms - General Info Date of Service: 05/22/20 - Patient Data Vital Signs - Most Recent: Last Vital Signs Temp 36.3 C 05/22/20 08:00 Pulse 89 05/22/20 08:00 Resp 16 05/22/20 08:00 BP 117/70 05/22/20 08:00 Pulse Ox 95 05/22/20 08:00 Weight - Most Recent: 94.602 kg I&O - Last 24 Hours: Intake & Output 05/21/20 05/22/20 05/22/20 22:59 06:59 14:59 Output Total 200 Balance -200 Lab Results - Last 24 Hours: Laboratory Results - last 24 hr 05/22/20 Range/Units 05:15 Hgb 8.3 L (12.0-16.0) g/dL Hct 25.2 L (36.0-46.0) % Med Orders - Current: Current Medications Bisacodyl (Dulcolax) 10 mg RECTAL ONETIME PRN PRN Reason: Constipation Diphenhydramine HCl (Benadryl) 25 mg IVPUSH Q6H PRN PRN Reason: Itching or Nausea Diphenhydramine HCl (Benadryl) 25 mg IVPUSH Q4H PRN PRN Reason: Itching Stop: 05/22/20 10:06 Last Admin: 05/21/20 11:15 Dose: 25 mg Documented by: Docusate Sodium (Colace) 100 mg PO BID [facility] Last Admin: 05/21/20 21:09 Dose: 100 mg Documented by: Emollient Ointment (Lansinoh Hpa) 0 gm TOP ASDIRECTED PRN PRN Reason: Sore Nipples Fentanyl (Sublimaze) 50 mcg IVPUSH Q1H PRN PRN Reason: Pain (severe 7-10) Oxytocin/Sodium Chloride (Oxytocin 30 Unit/500 Ml-Ns) 30 unit in 500 mls @ 250 mls/hr IV TITRATE [facility] Lactated Ringer's (Ringers, Lactated) 1,000 mls @ 500 mls/hr IV BOLUS [facility] Last Admin: 05/21/20 18:18 Dose: 500 mls/hr Documented by: Lactated Ringer's (Ringers, Lactated) 1,000 mls @ 125 mls/hr IV ASDIRECTED [facility] Last Admin: 05/21/20 11:15 Dose: 125 mls/hr Documented by: Oxytocin/Lactated Ringer's (Pitocin In Lr 30 Units/500 Ml) 30 unit in 500 mls @ 125 mls/hr IV TITRATE [facility]; Protocol Tranexamic Acid 1,000 mg/ (Sodium Chloride) 110 mls @ 660 mls/hr IV ONETIME PRN PRN Reason: Bleeding Ibuprofen (Motrin) 800 mg PO Q8H PRN PRN Reason: mild pain or fever Ketorolac Tromethamine (Toradol) 30 mg IVPUSH Q6H [facility] Stop: 05/22/20 10:01 Last Admin: 05/22/20 07:34 Dose: Not Given Documented by: Methylergonovine Maleate (Methergine) 0.2 mg IM ONETIME PRN PRN Reason: Excessive Vaginal Bleeding Misoprostol (Cytotec) 1,000 mcg RECTAL ONETIME PRN PRN Reason: excessive bleeding Nalbuphine HCl (Nubain) 5 mg IVPUSH ASDIRECTED PRN PRN Reason: Itching Naloxone HCl (Narcan) 0.1 mg IVPUSH ONETIME PRN PRN Reason: Respiratory Depression Stop: 05/22/20 10:06 Ondansetron HCl (Zofran) 4 mg IVPUSH Q4H PRN PRN Reason: Nausea/Vomiting Last Admin: 05/21/20 17:38 Dose: 4 mg Documented by: Ondansetron HCl (Zofran) 4 mg IVPUSH Q6H PRN PRN Reason: Nausea Oxycodone/Acetaminophen (Percocet 325-5 Mg) 1 tab PO Q4H PRN PRN Reason: Pain (moderate 4-6) Oxycodone/Acetaminophen (Percocet 325-5 Mg) 2 tab PO Q4H PRN PRN Reason: Pain (moderate 4-6) Oxycodone/Acetaminophen (Percocet 325-5 Mg) 2 tab PO Q6H PRN PRN Reason: Pain (moderate 4-6) Oxytocin (Pitocin) 10 unit IM ASDIRECTED PRN PRN Reason: Excessive Vaginal Bleeding Sodium Chloride (Saline Flush) 10 ml FLUSH ASDIRECTED PRN PRN Reason: Keep Vein Open Sodium Chloride (Saline Flush) 2.5 ml FLUSH ASDIRECTED PRN PRN Reason: Keep Vein Open Sodium Chloride (Normal Saline) 10 ml IV ASDIRECTED PRN PRN Reason: IV Use Discontinued Medications Cefazolin Sodium/Dextrose (Ancef) Confirm Administered Dose 2 gm IV .STK-MED ONE Stop: 05/21/20 08:17 Citric Acid/Sodium Citrate (Bicitra Solution) 30 ml PO ONETIME ONE Stop: 05/21/20 05:35 Last Admin: 05/22/20 07:25 Dose: Not Given Documented by: Cefazolin Sodium/Dextrose 2 gm (/ Premix) 50 mls @ 100 mls/hr IV ONETIME ONE Stop: 05/21/20 06:03 Last Admin: 05/22/20 07:24 Dose: Not Given Documented by: Ketorolac Tromethamine (Toradol) Confirm Administered Dose 30 mg .ROUTE .STK-MED ONE Stop: 05/21/20 09:03 Measles/Mumps/Rubella Vaccine Live (M-M-R Ii Vaccine) 0.5 ml SUBCUT .ONCE ONE Stop: 05/21/20 09:59 Morphine Sulfate (Duramorph Pf) Confirm Administered Dose 10 mg .ROUTE .STK-MED ONE Stop: 05/21/20 07:53 Morphine Sulfate (Morphine) Confirm Administered Dose 10 mg .ROUTE .STK-MED ONE Stop: 05/21/20 10:11 Octyl Cyanoacrylate (Dermabond Advance) Confirm Administered Dose 1 applic .ROUTE .STK-MED ONE Stop: 05/21/20 07:44 Last Admin: 05/22/20 07:25 Dose: Not Given Documented by: Ondansetron HCl (Zofran) Confirm Administered Dose 4 mg .ROUTE .STK-MED ONE Stop: 05/21/20 07:58 Oxytocin (Pitocin) Confirm Administered Dose 30 unit .ROUTE .STK-MED ONE Stop: 05/21/20 11:59 Phenylephrine HCl (Scot-Synephrine) Confirm Administered Dose 10 mg .ROUTE .STK- MED ONE Stop: 05/21/20 07:58 - Interaction Infant Disposition, : in Room with Family Interaction: Holding Infant Infant Feeding: Continues to Breastfeed, Encouraged to Breastfeed Support Person: - Recovery Exam Fundal Tone: Firm Fundal Level: 1 Fingerbreadths Below Umbilicus Fundal Placement: Midline Lochia Amount: Moderate Lochia Color: Rubra/Red Episiotomy/Laceration: None Bladder Status: Indwelling Catheter in Place Urinary Elimination: Other (see below) (Catheter removed at 0530 and patient has not voided. ) - Exam General: Alert, No Acute Distress Lungs: Clear to Auscultation, Normal Respiratory Effort Cardiovascular: Regular Rate, Regular Rhythm Extremities: Normal Inspection, Normal Range of Motion, No Pedal Edema Skin: Warm, Dry Wound/Incisions: Healing Well, Dressing Dry and Intact. No: Erythema Neurological: No New Focal Deficit Psy/Mental Status: Alert - Problem List Review Problem List Initiated/Reviewed/Updated: Yes - Assessment Assessment:: 29 y/o now on day one post tertiary elective low transverse section at 39/1 weeks. - Plan Plan:: 1. Routine -O+ blood, rubella non-immune, GBS negative 2. MMR at discharge 3. Continue 4. Anticipate discharge home tomorrow pending mother and infant status
[2020-05-22] MEDS: Docusate Sodium 100 MG Cap PO SCH ×2 (09:03→22:33)
--- NOTE | 2020-05-22 11:04 | PCM48HPAN ---
Post Anesthesia Note - EVALUATION WITHIN 48HRS OF ANESTHETIC Vital Signs in Normal Range: Yes Patient Participated in Evaluation: Yes Respiratory Function Stable: Yes Airway Patent: Yes Cardiovascular Function Stable: Yes Hydration Status Stable: Yes Pain Control Satisfactory: Yes Nausea and Vomiting Control Satisfactory: Yes Mental Status Recovered: Yes Vital Signs: Last Vital Signs Temp 36.3 C 05/22/20 08:00 Pulse 89 05/22/20 08:00 Resp 16 05/22/20 08:00 BP 117/70 05/22/20 08:00 Pulse Ox 95 05/22/20 08:00 - COMMENTS/OBSERVATIONS Free Text/Narrative:: Patient in bed holding baby. She has some itching and pressure in her head yesterday but this has since resolved. No other complaints or concerns. No anesthesia complications or concerns noted.
[2020-05-22] MEDS: Ibuprofen 800 MG Tab PO PRN ×2 (15:23→22:33)
--- NOTE | 2020-05-23 08:45 | PCM.PNPP ---
<Kaye Altamirano E - Last Filed: 05/23/20 08:53> - General Info Date of Service: 05/23/20 Admission Dx/Problem (Free Text): Elective tertiary repeat low transverse section at 39/1 weeks. Subjective Update: Patient is a 29 y/o female on day 2 after a tertiary repeat low transverse section. She had no overnight events. She is eating and voiding without difficulty. She is having some back pain but attributes this to only taking ibuprofen. She would like a stronger pain medication that does not contain codeine so she does not get sleepy. Overall she is doing well with and has no questions or concerns at this time. Functional Status: Reports: Tolerating Diet, Ambulating, Urinating - Review of Systems General: Reports: No Symptoms Genitourinary: Reports: No Symptoms Musculoskeletal: Reports: Back Pain Skin: Reports: No Symptoms Neurological: Reports: No Symptoms (No dizziness.) - General Info Date of Service: 05/23/20 - Patient Data Vital Signs - Most Recent: Last Vital Signs Temp 36.8 C 05/22/20 23:53 Pulse 91 05/22/20 23:53 Resp 16 05/22/20 23:53 BP 117/72 05/22/20 23:53 Pulse Ox 95 05/22/20 23:53 Weight - Most Recent: 94.602 kg Med Orders - Current: Current Medications Bisacodyl (Dulcolax) 10 mg RECTAL ONETIME PRN PRN Reason: Constipation Diphenhydramine HCl (Benadryl) 25 mg IVPUSH Q6H PRN PRN Reason: Itching or Nausea Docusate Sodium (Colace) 100 mg PO BID [facility] Last Admin: 05/22/20 22:33 Dose: 100 mg Documented by: Emollient Ointment (Lansinoh Hpa) 0 gm TOP ASDIRECTED PRN PRN Reason: Sore Nipples Fentanyl (Sublimaze) 50 mcg IVPUSH Q1H PRN PRN Reason: Pain (severe 7-10) Oxytocin/Sodium Chloride (Oxytocin 30 Unit/500 Ml-Ns) 30 unit in 500 mls @ 250 mls/hr IV TITRATE [facility] Lactated Ringer's (Ringers, Lactated) 1,000 mls @ 500 mls/hr IV BOLUS [facility] Last Admin: 05/21/20 18:18 Dose: 500 mls/hr Documented by: Lactated Ringer's (Ringers, Lactated) 1,000 mls @ 125 mls/hr IV ASDIRECTED JOSUE Last Admin: 05/21/20 11:15 Dose: 125 mls/hr Documented by: Oxytocin/Lactated Ringer's (Pitocin In Lr 30 Units/500 Ml) 30 unit in 500 mls @ 125 mls/hr IV TITRATE JOSUE; Protocol Tranexamic Acid 1,000 mg/ (Sodium Chloride) 110 mls @ 660 mls/hr IV ONETIME PRN PRN Reason: Bleeding Ibuprofen (Motrin) 800 mg PO Q8H PRN PRN Reason: mild pain or fever Last Admin: 05/22/20 22:33 Dose: 800 mg Documented by: Methylergonovine Maleate (Methergine) 0.2 mg IM ONETIME PRN PRN Reason: Excessive Vaginal Bleeding Misoprostol (Cytotec) 1,000 mcg RECTAL ONETIME PRN PRN Reason: excessive bleeding Nalbuphine HCl (Nubain) 5 mg IVPUSH ASDIRECTED PRN PRN Reason: Itching Ondansetron HCl (Zofran) 4 mg IVPUSH Q4H PRN PRN Reason: Nausea/Vomiting Last Admin: 05/21/20 17:38 Dose: 4 mg Documented by: Ondansetron HCl (Zofran) 4 mg IVPUSH Q6H PRN PRN Reason: Nausea Oxycodone/Acetaminophen (Percocet 325-5 Mg) 1 tab PO Q4H PRN PRN Reason: Pain (moderate 4-6) Oxycodone/Acetaminophen (Percocet 325-5 Mg) 2 tab PO Q4H PRN PRN Reason: Pain (moderate 4-6) Oxycodone/Acetaminophen (Percocet 325-5 Mg) 2 tab PO Q6H PRN PRN Reason: Pain (moderate 4-6) Oxytocin (Pitocin) 10 unit IM ASDIRECTED PRN PRN Reason: Excessive Vaginal Bleeding Sodium Chloride (Saline Flush) 10 ml FLUSH ASDIRECTED PRN PRN Reason: Keep Vein Open Sodium Chloride (Saline Flush) 2.5 ml FLUSH ASDIRECTED PRN PRN Reason: Keep Vein Open Sodium Chloride (Normal Saline) 10 ml IV ASDIRECTED PRN PRN Reason: IV Use Discontinued Medications Cefazolin Sodium/Dextrose (Ancef) Confirm Administered Dose 2 gm IV .STK-MED ONE Stop: 05/21/20 08:17 Citric Acid/Sodium Citrate (Bicitra Solution) 30 ml PO ONETIME ONE Stop: 05/21/20 05:35 Last Admin: 05/22/20 07:25 Dose: Not Given Documented by: Diphenhydramine HCl (Benadryl) 25 mg IVPUSH Q4H PRN PRN Reason: Itching Stop: 05/22/20 10:06 Last Admin: 05/21/20 11:15 Dose: 25 mg Documented by: Cefazolin Sodium/Dextrose 2 gm (/ Premix) 50 mls @ 100 mls/hr IV ONETIME ONE Stop: 05/21/20 06:03 Last Admin: 05/22/20 07:24 Dose: Not Given Documented by: Ketorolac Tromethamine (Toradol) Confirm Administered Dose 30 mg .ROUTE .STK-MED ONE Stop: 05/21/20 09:03 Ketorolac Tromethamine (Toradol) 30 mg IVPUSH Q6H JOSUE Stop: 05/22/20 10:01 Last Admin: 05/22/20 09:03 Dose: 30 mg Documented by: Measles/Mumps/Rubella Vaccine Live (M-M-R Ii Vaccine) 0.5 ml SUBCUT .ONCE ONE Stop: 05/21/20 09:59 Morphine Sulfate (Duramorph Pf) Confirm Administered Dose 10 mg .ROUTE .STK-MED ONE Stop: 05/21/20 07:53 Morphine Sulfate (Morphine) Confirm Administered Dose 10 mg .ROUTE .STK-MED ONE Stop: 05/21/20 10:11 Naloxone HCl (Narcan) 0.1 mg IVPUSH ONETIME PRN PRN Reason: Respiratory Depression Stop: 05/22/20 10:06 Octyl Cyanoacrylate (Dermabond Advance) Confirm Administered Dose 1 applic .ROUTE .STK-MED ONE Stop: 05/21/20 07:44 Last Admin: 05/22/20 07:25 Dose: Not Given Documented by: Ondansetron HCl (Zofran) Confirm Administered Dose 4 mg .ROUTE .STK-MED ONE Stop: 05/21/20 07:58 Oxytocin (Pitocin) Confirm Administered Dose 30 unit .ROUTE .STK-MED ONE Stop: 05/21/20 11:59 Phenylephrine HCl (Scot-Synephrine) Confirm Administered Dose 10 mg .ROUTE .STK- MED ONE Stop: 05/21/20 07:58 - Infant Interaction Infant Disposition, : in Room with Family Infant Feeding: Continues to Breastfeed, Encouraged to Breastfeed Support Person: - Recovery Exam Fundal Tone: Firm Fundal Level: 2 Fingerbreadths Below Umbilicus Fundal Placement: Midline Lochia Amount: Moderate Lochia Color: Rubra/Red Episiotomy/Laceration: None Bladder Status: Voiding Urinary Elimination: Voided - Exam General: Alert, No Acute Distress Lungs: Clear to Auscultation, Normal Respiratory Effort Cardiovascular: Regular Rate, Regular Rhythm GI/Abdominal Exam: Soft, Tender. No: Guarding, Rigid, Rebound Extremities: Normal Inspection, Normal Range of Motion, No Pedal Edema Skin: Warm, Dry Wound/Incisions: Healing Well, No Drainage. No: Erythema Neurological: No New Focal Deficit, Normal Speech Psy/Mental Status: Alert, Normal Mood - Problem List Review Problem List Initiated/Reviewed/Updated: Yes - Assessment Assessment:: 29 y/o now on day two post tertiary elective low transverse section at 39/1 weeks. - Plan Plan:: 1. Routine -O+ blood, rubella non-immune, GBS negative 2. MMR at discharge 3. Continue 4. Anticipate discharge home today pending mother and status <Genny Driscoll - Last Filed: 05/23/20 09:47> - General Info Subjective Update: Clarification, after discussing that Percocet has oxycodone, not codeine and she is not allergic, she will try Percocet for pain. - Patient Data Vital Signs - Most Recent: Last Vital Signs Temp 36.8 C 05/22/20 23:53 Pulse 91 05/22/20 23:53 Resp 16 05/22/20 23:53 BP 117/72 05/22/20 23:53 Pulse Ox 95 05/22/20 23:53 Med Orders - Current: Current Medications Bisacodyl (Dulcolax) 10 mg RECTAL ONETIME PRN PRN Reason: Constipation Diphenhydramine HCl (Benadryl) 25 mg IVPUSH Q6H PRN PRN Reason: Itching or Nausea Docusate Sodium (Colace) 100 mg PO BID [facility] Last Admin: 05/22/20 22:33 Dose: 100 mg Documented by: Emollient Ointment (Lansinoh Hpa) 0 gm TOP ASDIRECTED PRN PRN Reason: Sore Nipples Fentanyl (Sublimaze) 50 mcg IVPUSH Q1H PRN PRN Reason: Pain (severe 7-10) Oxytocin/Sodium Chloride (Oxytocin 30 Unit/500 Ml-Ns) 30 unit in 500 mls @ 250 mls/hr IV TITRATE JOSUE Lactated Ringer's (Ringers, Lactated) 1,000 mls @ 500 mls/hr IV BOLUS [facility] Last Admin: 05/21/20 18:18 Dose: 500 mls/hr Documented by: Lactated Ringer's (Ringers, Lactated) 1,000 mls @ 125 mls/hr IV ASDIRECTED [facility] Last Admin: 05/21/20 11:15 Dose: 125 mls/hr Documented by: Oxytocin/Lactated Ringer's (Pitocin In Lr 30 Units/500 Ml) 30 unit in 500 mls @ 125 mls/hr IV TITRATE [facility]; Protocol Tranexamic Acid 1,000 mg/ (Sodium Chloride) 110 mls @ 660 mls/hr IV ONETIME PRN PRN Reason: Bleeding Ibuprofen (Motrin) 800 mg PO Q8H PRN PRN Reason: mild pain or fever Last Admin: 05/22/20 22:33 Dose: 800 mg Documented by: Methylergonovine Maleate (Methergine) 0.2 mg IM ONETIME PRN PRN Reason: Excessive Vaginal Bleeding Misoprostol (Cytotec) 1,000 mcg RECTAL ONETIME PRN PRN Reason: excessive bleeding Nalbuphine HCl (Nubain) 5 mg IVPUSH ASDIRECTED PRN PRN Reason: Itching Ondansetron HCl (Zofran) 4 mg IVPUSH Q4H PRN PRN Reason: Nausea/Vomiting Last Admin: 05/21/20 17:38 Dose: 4 mg Documented by: Ondansetron HCl (Zofran) 4 mg IVPUSH Q6H PRN PRN Reason: Nausea Oxycodone/Acetaminophen (Percocet 325-5 Mg) 1 tab PO Q4H PRN PRN Reason: Pain (moderate 4-6) Oxycodone/Acetaminophen (Percocet 325-5 Mg) 2 tab PO Q4H PRN PRN Reason: Pain (moderate 4-6) Oxycodone/Acetaminophen (Percocet 325-5 Mg) 2 tab PO Q6H PRN PRN Reason: Pain (moderate 4-6) Oxytocin (Pitocin) 10 unit IM ASDIRECTED PRN PRN Reason: Excessive Vaginal Bleeding Sodium Chloride (Saline Flush) 10 ml FLUSH ASDIRECTED PRN PRN Reason: Keep Vein Open Sodium Chloride (Saline Flush) 2.5 ml FLUSH ASDIRECTED PRN PRN Reason: Keep Vein Open Sodium Chloride (Normal Saline) 10 ml IV ASDIRECTED PRN PRN Reason: IV Use Discontinued Medications Cefazolin Sodium/Dextrose (Ancef) Confirm Administered Dose 2 gm IV .STK-MED ONE Stop: 05/21/20 08:17 Citric Acid/Sodium Citrate (Bicitra Solution) 30 ml PO ONETIME ONE Stop: 05/21/20 05:35 Last Admin: 05/22/20 07:25 Dose: Not Given Documented by: Diphenhydramine HCl (Benadryl) 25 mg IVPUSH Q4H PRN PRN Reason: Itching Stop: 05/22/20 10:06 Last Admin: 05/21/20 11:15 Dose: 25 mg Documented by: Cefazolin Sodium/Dextrose 2 gm (/ Premix) 50 mls @ 100 mls/hr IV ONETIME ONE Stop: 05/21/20 06:03 Last Admin: 05/22/20 07:24 Dose: Not Given Documented by: Ketorolac Tromethamine (Toradol) Confirm Administered Dose 30 mg .ROUTE .STK-MED ONE Stop: 05/21/20 09:03 Ketorolac Tromethamine (Toradol) 30 mg IVPUSH Q6H JOSUE Stop: 05/22/20 10:01 Last Admin: 05/22/20 09:03 Dose: 30 mg Documented by: Measles/Mumps/Rubella Vaccine Live (M-M-R Ii Vaccine) 0.5 ml SUBCUT .ONCE ONE Stop: 05/21/20 09:59 Morphine Sulfate (Duramorph Pf) Confirm Administered Dose 10 mg .ROUTE .STK-MED ONE Stop: 05/21/20 07:53 Morphine Sulfate (Morphine) Confirm Administered Dose 10 mg .ROUTE .STK-MED ONE Stop: 05/21/20 10:11 Naloxone HCl (Narcan) 0.1 mg IVPUSH ONETIME PRN PRN Reason: Respiratory Depression Stop: 05/22/20 10:06 Octyl Cyanoacrylate (Dermabond Advance) Confirm Administered Dose 1 applic .ROUTE .STK-MED ONE Stop: 05/21/20 07:44 Last Admin: 05/22/20 07:25 Dose: Not Given Documented by: Ondansetron HCl (Zofran) Confirm Administered Dose 4 mg .ROUTE .STK-MED ONE Stop: 05/21/20 07:58 Oxytocin (Pitocin) Confirm Administered Dose 30 unit .ROUTE .STK-MED ONE Stop: 05/21/20 11:59 Phenylephrine HCl (Scot-Synephrine) Confirm Administered Dose 10 mg .ROUTE .STK- MED ONE Stop: 05/21/20 07:58 - Problem List Review Problem List Initiated/Reviewed/Updated: Yes - Assessment Assessment:: Patient was seen and examined and I agree with above. Discussed over the co unter Iron for one month for anemia. Discharge instructions reviewed.
[2020-05-23] MEDS: Ibuprofen 800 MG Tab PO PRN (10:04)
[2020-05-23] MEDS: Docusate Sodium 100 MG Cap PO SCH (10:04)
[2020-05-23 11:35] VITALS: BP 124/85; PULSE 82
--- NOTE | 2020-05-24 09:37 | OR ---
SURGEON: [facility] OPERATOR: Assisted by medical student Sharmaine. DATE OF PROCEDURE: 05/21/2020 PREOPERATIVE DIAGNOSIS: A 29-year-old G4, P1-1-1-2, at 39 weeks 1 day for tertiary section. POSTOPERATIVE DIAGNOSIS: A 29-year-old G4, P1-1-1-2, at 39 weeks 1 day for tertiary section. PROCEDURE: Tertiary lower segment section. ESTIMATED BLOOD LOSS: 700. INTRAVENOUS FLUID: 900. URINE OUTPUT: 150. ANESTHESIA: Spinal. NOTES AND FINDINGS: A live female delivered at 8:35 a.m., scores 8 and 9, weight is 3650 g. BRIEF HISTORY ABOUT THE PATIENT: She is a 29-year-old G4, P1-1-1-2, at 39 weeks and 1 day, previous low-risk patient, GBS negative, rubella nonimmune, was scheduled for a repeat tertiary section. She was explained the risks, benefits, and alternatives, and she decided to proceed. PROCEDURE IN DETAIL: The patient was taken to the operating room, where spinal anesthesia was performed without difficulty. She was prepared and draped in the dorsal supine position with a leftward tilt. A Pfannenstiel skin incision was made at the level of the previous incision, and the incision was carried down to the fascia with the Bovie. The fascia was incised and extended upwards and laterally. The rectus muscle was in the midline, and the peritoneum was entered with the aid of blunt and sharp dissection. The peritoneum was extended with upward traction. The lower uterine segment was noted. Then, a bladder flap was created. A lower uterine incision was made. The head was brought to the level of the incision with fundal pressure. The was delivered without difficulty. The nose was suctioned and was cleaned. Delayed cord clamping was observed. The cord blood gases were obtained. The placenta was delivered via manual massage of the uterine fundus. The uterus was cleaned with a moist laparotomy sponge. The hysterotomy incision was closed in 2 layers, the first layer with 0 Vicryl and the second layer with 2-0 Monocryl imbricating layer. The incision was inspected and noted to be hemostatic. The gutters were cleaned. The adnexa were inspected and noted to be normal. Then, the Kaushik retractor was removed. Again, the incision was inspected without the Kaushik retractor and was noted to be hemostatic. Then, the rectus muscle was closed with the peritoneum in the midline then with the continuous incision. Then, the fascia was closed with 0 Vicryl in a continuous fashion. The subcutaneous fat was inspected. Hemostasis was noted there. A 3.0 plain gut continuous stitch was done to approximate the subcutaneous fascia. Then, the skin was closed with 3-0 Monocryl on a Harrison needle. The side on the right was a little oozy, so an interrupted stitch was put there. All instrument and pad counts were correct x2. The patient tolerated the procedure well and was taken to the Labor and Delivery room in stable condition. HUMBERTO RODRIGUEZ /[id number] MTDD
== END 2020-05-23 14:30 | disposition home or self-care (01) | DRG 788 ==
LOC: MW.OB 05:24
PROVIDERS: ADMIT Obstetrics & Gynecology; ATTEND Obstetrics & Gynecology
PROC: 10D00Z1 Extraction of Products of Conception, Low, Open Approach (ICD-10-PCS; principal; 2020-05-21)
DX: O34.211 Maternal care for low transverse scar from previous cesarean delivery (principal); Z3A.39 39 weeks gestation of pregnancy; Z37.0 Single live birth; O99.02 Anemia complicating childbirth; D64.9 Anemia, unspecified; Z20.828 Contact with and (suspected) exposure to other viral communicable diseases
CPT/HCPCS: 01961; 36415; 51702; 59025; 85014; 85018; 85027; 86592; 86850; 86900; 86901; A9270-GY; J0690; J1200; J1885; J2270; J2370; J2405; J2590; J7120; U0002

== ENCOUNTER 2020-07-19 18:53 | Emergency (ER) | payer MEDICAID ==
[2020-07-19 19:17] VITALS: BP 125/90; PULSE 86
--- NOTE | 2020-07-19 19:17 | EDM.PDOC ---
ED HPI GENERAL MEDICAL PROBLEM - General Chief Complaint: Laceration Stated Complaint: LEFT ARM FINGER INJURY Time Seen by Provider: 07/19/20 19:15 - History of Present Illness INITIAL COMMENTS - FREE TEXT/NARRATIVE: History of present illness: [] Right-handed young lady was trying to cut a stick of butter and she missed and cut her finger. She is a right-handed woman who cut her left index finger. She does not have any other complaint. She cannot remember her last tetanus shot. She has no medical problems. Review of systems: As per history of present illness and below otherwise all systems reviewed and negative. Past medical history: As per history of present illness and as reviewed below otherwise noncontributory. Surgical history: As per history of present illness and as reviewed below otherwise noncontribu tory. Social history: No reported history of drug or alcohol abuse. Family history: As per history of present illness and as reviewed below otherwise noncontributory. Physical exam: Constitutional - well developed, well-nourished and in no acute distress HEENT - normocephalic, no evidence of trauma - external nose and mouth normal - no mass in neck and no JVD - mucosae moist EYES - full EOM, PERRL, no icterus - no evidence of inflammation, injection, or drainage Respiratory - no respiratory distress, equal bilateral expansion Musculoskeletal no gross deformity of long bones or joints - no tenderness, swelling or edema Neurologic - Alert and oriented times four - CN II-XII grossly intact - motor sensory and coordination symmetrically normal Psychiatric - appropriate mood and affect with normal thought content Hematologic - No petechiae or purpura - mucosa appropriate color and sclera not pale - normal nail bed color and refill Integument -centimeter laceration on the radial edge of the middle segment of the left index finger which is full-thickness but does not cross the joint. No rash or evidence of trauma - normal turgor Diagnostics: [] Therapeutics: [] Impression: [] Plan: [] Definitive disposition and diagnosis as appropriate pending reevaluation and review of above. - Related Data Allergies Allergy/AdvReac Type Severity Reaction Status Date / Time Penicillins Allergy Hives Verified 07/19/20 19:17 Sulfa (Sulfonamide Allergy Hives Verified 07/19/20 19:17 Antibiotics) Home Meds: Home Meds Albuterol Sulfate [Proair Hfa] 1 - 2 puff INH ASDIRECTED PRN 05/14/20 [History] Melatonin 3 mg PO BEDTIME PRN 05/14/20 [History] Pnv No.95/Ferrous Fum/Folic AC [ Vitamin Tablet] 1 tab PO DAILY 05/14/20 [History] Acetaminophen/oxyCODONE [Percocet 325-5 MG] 1 - 2 tab PO Q4H PRN #20 tablet 05/21/20 [Rx] Ibuprofen [Motrin] 800 mg PO Q8H PRN 5 Days #20 tablet 05/21/20 [Rx] Past Medical History HEENT History: Reports: None Other HEENT History: Wisdome Teeth Removal; Glasses Cardiovascular History: Reports: None Other Cardiovascular History: elevated BP with first due to pre eclampsia Respiratory History: Reports: Asthma Other Respiratory History: Exercise induced asthma, states she hasn't used inhaler in months Gastrointestinal History: Reports: None Other Gastrointestinal History: gallstones Genitourinary History: Reports: None [employer] History: Reports: Musculoskeletal History: Reports: None Neurological History: Reports: Other (See Below) Other Neuro History: hx of motion sickness Psychiatric History: Reports: Anxiety, Depression Endocrine/Metabolic History: Reports: Other (See Below) Other Endocrine/Metabolic History: just diagnosed with Hashimotos thyroiditis- no medications Hematologic History: Reports: Anemia Immunologic History: Reports: None Oncologic (Cancer) History: Reports: None Dermatologic History: Reports: None - Infectious Disease History Infectious Disease History: Reports: Chicken Pox - Past Surgical History HEENT Surgical History: Reports: Tonsillectomy Respiratory Surgical History: Reports: None Female Surgical History: Reports: Section Neurological Surgical History: Reports: None Other Musculoskeletal Surgeries/Procedures:: bilateral bunionectomy (has screw in each foot) Oncologic Surgical History: Reports: None Dermatological Surgical History: Reports: None Social & Family History - Family History Family Medical History: No Pertinent Family History - Caffeine Use Caffeine Use: Reports: None ED ROS GENERAL - Review of Systems Review Of Systems: Comprehensive ROS is negative, except as noted in HPI. ED EXAM, SKIN/RASH Exam: See Below Text/Narrative:: My physical exam is in the HPI ED SKIN PROCEDURES - Laceration/Wound Repair Left Digit - 2nd (Index) Appearance: Subcutaneous Distal NVT: Neuro & Vascular Intact Anesthetic Type: Other (None) Skin Prep: Saline Saline Irrigation (cc's): 50 Closed with: Wound Adhesive Lac/Wound length In cm: 1 Course - Vital Signs Last Recorded V/S: Last Vital Signs Temp 36.0 C L 07/19/20 19:15 Pulse 86 07/19/20 19:15 Resp 18 07/19/20 19:15 BP 125/90 07/19/20 19:15 Pulse Ox 98 07/19/20 19:15 Departure - Departure Time of Disposition: 21:35 Disposition: Home, Self-Care 01 Condition: Good Clinical Impression: Laceration of index finger - Discharge Information Instructions: Sutures, Dennis, or Adhesive Wound Closure Referrals: PCP,None [Primary Care Provider] - Forms: ED Department Discharge Additional Instructions: [facility] - Primary Care [address] [place] [id number] [id number] The following information is given to patients seen in the emergency department who are being discharged to home. This information is to outline your options for follow-up care. We provide all patients seen in our emergency department with a follow-up referral. The need for follow-up, as well as the timing and circumstances, are variable depending upon the specifics of your emergency department visit. If you don't have a primary care physician on staff, we will provide you with a referral. We always advise you to contact your personal physician following an emergency department visit to inform them of the circumstance of the visit and for follow-up with them and/or the need for any referrals to a consulting specialist. The emergency department will also refer you to a specialist when appropriate. This referral assures that you have the opportunity for follow-up care with a specialist. All of these measure are taken in an effort to provide you with optimal care, which includes your follow-up. Under all circumstances we always encourage you to contact your private physician who remains a resource for coordinating your care. When calling for follow-up care, please make the office aware that this follow-up is from your recent emergency room visit. If for any reason you are refused follow-up, please contact the [facility] Emergency Department at and asked to speak to the emergency department charge nurse. Sepsis Event Note (ED) - Focused Exam Vital Signs: Vital Signs Temp Pulse Resp BP Pulse Ox 07/19/20 19:15 36.0 C L 86 18 125/90 98
[2020-07-19] MEDS ORDERED: Diphtheria,Pertussis(Acell),Tetanus Vaccine 0.5 ML Syringe IM ONE (19:22)
[2020-07-19] MEDS ORDERED: Octyl 2-Cyanoacrylate 1 APPLIC TUBE ONE (19:39)
[2020-07-19] MEDS ORDERED: Octyl 2-Cyanoacrylate 1 APPLIC TUBE TOP ONE (19:40)
== END 2020-07-19 19:58 | disposition home or self-care (01) ==
LOC: MW.ED 18:53
DX: S61.211A Laceration without foreign body of left index finger without damage to nail, initial encounter (principal); Z23 Encounter for immunization; Z88.0 Allergy status to penicillin; Z88.2 Allergy status to sulfonamides; W26.8XXA Contact with other sharp object(s), not elsewhere classified, initial encounter
CPT/HCPCS: 12001; 90471; 90715; 99282; A9270